=== PATIENT | male | born 1935 | race Caucasian/White ===

== ENCOUNTER 2018-11-25 08:02 | Day surgery (SDC) | payer MEDICARE ==
[~2018-11-25] VITALS: Ht 165.1 cm; Wt 71.0 kg
[~2018-11-25 08:02] MED LIST: AFLI2VIA IO; ATOR20TA65 PO; FLAX100020 PO; GLUC-145 PO; LATA2.5D2 OP; LISI10TA7 PO; PANT40TA25 PO; [UNRECOGNIZED DRUG - CODE] PO
[2018-11-25 09:38] VITALS: BP 123/60
[2018-11-25] MEDS ORDERED: PROPOFOL 10 MG/ML 20ML VIAL IV ONE (09:54)
[2018-11-25] MEDS ORDERED: ASPI-555 PO (10:12)
[2018-11-25] MEDS ORDERED: METO25TA6 PO (10:12)
[2018-11-25] MEDS ORDERED: FURO20TA4 PO (10:15)
[2018-11-25] MEDS ORDERED: SODIUM CHLORIDE 0.9% 1000ML 1,000 ML IV ONE (10:18)
[2018-11-25 10:19] VITALS: BP 94/55
[2018-11-25 10:25] VITALS: BP 97/40
--- NOTE | 2018-11-25 10:25 | NUR ---
ASSESSMENT RECEIVED PT. ASLEEP. ABD SOFT TO TOUCH. BS X4 PRESENT.
[2018-11-25 10:30] VITALS: BP 102/49
[2018-11-25 10:46] VITALS: BP 107/56
[2018-11-25 10:56] VITALS: BP 115/78
== END 2018-11-25 11:00 | disposition home or self-care (01) ==
LOC: DAH 08:02 → ENDO 08:02
PROVIDERS: ATTEND Internal Medicine
DX: K22.710 Barrett's esophagus with low grade dysplasia (principal); I10 Essential (primary) hypertension; E78.5 Hyperlipidemia, unspecified; Z85.038 Personal history of other malignant neoplasm of large intestine; Z98.890 Other specified postprocedural states; Z95.1 Presence of aortocoronary bypass graft; Z79.01 Long term (current) use of anticoagulants; Z79.899 Other long term (current) drug therapy; Z88.2 Allergy status to sulfonamides; D17.5 Benign lipomatous neoplasm of intra-abdominal organs; K31.89 Other diseases of stomach and duodenum; R00.1 Bradycardia, unspecified
CPT/HCPCS: 43237; 43239; 88305; 88312; 93005; A4606; J2704; J7030

== ENCOUNTER 2019-05-13 06:19 | Day surgery (SDC) | payer MEDICARE ==
[~2019-05-13] VITALS: Ht 170.2 cm; Wt 70.9 kg
[2019-05-13] VITALS (7 sets, daily range): BP systolic 72–118; BP diastolic 33–53
[~2019-05-13 06:19] MED LIST changes: -AFLI2VIA IO; +ASPI-555 PO; -FLAX100020 PO; +FURO20TA4 PO; -LISI10TA7 PO; +METO25TA6 PO; +SODIUM CHLORIDE 0.9% 1000ML 1,000 ML IV ONE; -[UNRECOGNIZED DRUG - CODE] PO
[2019-05-13] MEDS ORDERED: PROPOFOL 10 MG/ML 20ML VIAL IV ONE (09:17)
[2019-05-13] MEDS ORDERED: ATROPINE SULFATE 0.1 MG/ML 10 ML SYG IVP ONE (09:17)
[2019-05-13] MEDS ORDERED: EPHEDRINE SULFATE 50 MG/ML AMPULE ONE (09:18)
--- NOTE | 2019-05-13 10:03 | NUR ---
dc pt dc home via wc, accompanied by son, pt denies any pain or discomforts.
== END 2019-05-13 10:03 | disposition home or self-care (01) ==
LOC: DAH 06:19 → ENDO 06:19
PROVIDERS: ATTEND Internal Medicine
DX: K22.710 Barrett's esophagus with low grade dysplasia (principal); K44.9 Diaphragmatic hernia without obstruction or gangrene; K31.89 Other diseases of stomach and duodenum; I10 Essential (primary) hypertension; K21.9 Gastro-esophageal reflux disease without esophagitis; I25.10 Atherosclerotic heart disease of native coronary artery without angina pectoris; H40.9 Unspecified glaucoma; Z79.82 Long term (current) use of aspirin; Z79.899 Other long term (current) drug therapy; E78.5 Hyperlipidemia, unspecified; Z85.038 Personal history of other malignant neoplasm of large intestine; Z90.89 Acquired absence of other organs; Z90.49 Acquired absence of other specified parts of digestive tract; Z80.0 Family history of malignant neoplasm of digestive organs; Z88.2 Allergy status to sulfonamides; Z85.01 Personal history of malignant neoplasm of esophagus
CPT/HCPCS: 43239; 88305; A4606; J0461; J2704; J3490; J7030

== ENCOUNTER 2019-11-07 16:12 | Emergency (ER) | payer MEDICARE ==
[~2019-11-07 16:12] MED LIST changes: -SODIUM CHLORIDE 0.9% 1000ML 1,000 ML IV ONE
[2019-11-07] MEDS ORDERED: NITROGLYCERIN 1GM/1 INCH PACKET TD ONE (16:46)
[2019-11-07] MEDS ORDERED: ASPIRIN 325 MG TABLET ONE (16:46)
[2019-11-07 16:48] LABS: BASOPHILS % (AUTO) 0.7 % (0.0-5.0); EOSINOPHILS % (AUTO) 2.8 % (0.0-8.0); HEMATOCRIT 39.6 % (42-54); LYMPHOCYTES % (AUTO) 25.7 % (21.0-51.0); MEAN CORPUSCULAR HEMOGLOBIN 28.6 pg (27.0-33.0); MEAN CORPUSCULAR HGB CONC 31.8 g/dL (32.0-36.0); MONOCYTES % (AUTO) 7.1 % (3.0-13.0); NEUTROPHILS % (AUTO) 63.5 % (40.0-77.0); PLATELET COUNT (AUTO) 165 K/uL (130-400); RED CELL DISTRIBUTION WIDTH 15.4 % (11.0-15.5); WHITE BLOOD COUNT (AUTO) 5.8 K/uL (4.8-10.8)
[2019-11-07 17:02] LABS: CREATININE 1.7 mg/dL (0.5-1.5); POTASSIUM 3.9 mmol/L (3.5-5.1)
[2019-11-07 17:04] LABS: PARTIAL THROMBOPLASTIN TIME 26.5 SEC (26.3-35.5); PROTHROMBIN TIME 10.5 SEC (9.6-11.6)
[2019-11-07 17:08] LABS: ALBUMIN 3.5 g/dL (3.5-5.0); BILIRUBIN,TOTAL 0.5 mg/dL (0.2-1.0); TOTAL PROTEIN, SERUM 7.1 g/dL (6.0-8.3)
[2019-11-07 17:13] LABS: CREATINE KINASE, TOTAL 109 U/L (21-232); MYOGLOBIN 88 ng/mL (10-92); TROPONIN I < 0.04 ng/mL (0.00-0.06)
== END 2019-11-07 20:42 | disposition home or self-care (01) ==
LOC: EDH 16:12
DX: R07.89 Other chest pain (principal); F03.90 Unspecified dementia, unspecified severity, without behavioral disturbance, psychotic disturbance, mood disturbance, and anxiety; Z88.2 Allergy status to sulfonamides; K21.9 Gastro-esophageal reflux disease without esophagitis; E78.5 Hyperlipidemia, unspecified; I10 Essential (primary) hypertension; Z98.890 Other specified postprocedural states; Z87.891 Personal history of nicotine dependence; W18.39XA Other fall on same level, initial encounter; Y93.89 Activity, other specified; Y92.89 Other specified places as the place of occurrence of the external cause; Y99.8 Other external cause status
CPT/HCPCS: 36415; 80053; 82550; 83874; 84484; 85025; 85610; 85730; 93005

== ENCOUNTER → 2019-11-23 | Outpatient (CLI) | payer MEDICARE | END | disposition home or self-care (01) | LOC: RAH 10:18 | PROVIDERS: ATTEND Internal Medicine | DX: G31.9 Degenerative disease of nervous system, unspecified (principal); I67.82 Cerebral ischemia; M61.9 Calcification and ossification of muscle, unspecified | CPT/HCPCS: 70450 ==

== ENCOUNTER 2019-12-03 06:31 | Day surgery (SDC) | payer MEDICARE ==
[~2019-12-03] VITALS: Ht 167.6 cm; Wt 68.0 kg
[~2019-12-03 06:31] MED LIST changes: +SODIUM CHLORIDE 0.9% 1000ML 1,000 ML IV ONE
[2019-12-03 08:15] VITALS: BP 131/74
[2019-12-03] MEDS ORDERED: PROPOFOL 10 MG/ML 20ML VIAL IV ONE (09:14)
[2019-12-03 09:30] VITALS: BP 116/66
[2019-12-03 09:35] VITALS: BP 113/56
[2019-12-03 09:40] VITALS: BP 114/59
[2019-12-03 09:45] VITALS: BP 117/61
== END 2019-12-03 10:00 | disposition home or self-care (01) ==
LOC: DAH 06:31 → ENDO 06:31
PROVIDERS: ATTEND Internal Medicine
DX: C15.4 Malignant neoplasm of middle third of esophagus (principal); D13.2 Benign neoplasm of duodenum; I10 Essential (primary) hypertension; I25.10 Atherosclerotic heart disease of native coronary artery without angina pectoris; E78.5 Hyperlipidemia, unspecified; K31.89 Other diseases of stomach and duodenum; K21.9 Gastro-esophageal reflux disease without esophagitis; Z85.038 Personal history of other malignant neoplasm of large intestine; Z95.1 Presence of aortocoronary bypass graft; Z88.2 Allergy status to sulfonamides; Z79.82 Long term (current) use of aspirin; Z79.899 Other long term (current) drug therapy; Z90.89 Acquired absence of other organs; Z93.3 Colostomy status
CPT/HCPCS: 43239; A4215; A4221; A4222; A4223; A4606; A4620; A4663; J2704; J7030

== ENCOUNTER 2023-09-20 21:05 | Emergency (ER) | payer MEDICARE ==
[~2023-09-20] VITALS: Ht 175.3 cm; Wt 70.8 kg
[~2023-09-20 21:05] MED LIST changes: -ASPI-555 PO; +ASPI-556 PO; -FURO20TA4 PO; +LATA2.5D14 OP; -LATA2.5D2 OP; -PANT40TA25 PO; +PANT40TA54 PO; -SODIUM CHLORIDE 0.9% 1000ML 1,000 ML IV ONE
[2023-09-21 02:45] VITALS: BP 127/60; PULSE 78; RESP 14; O2SAT 97
== END 2023-09-21 02:45 ==
LOC: EDH 21:05
DX: S51.011A Laceration without foreign body of right elbow, initial encounter (principal); S00.83XA Contusion of other part of head, initial encounter; I10 Essential (primary) hypertension; F02.80 Dementia in other diseases classified elsewhere, unspecified severity, without behavioral disturbance, psychotic disturbance, mood disturbance, and anxiety; Z79.82 Long term (current) use of aspirin; Z79.899 Other long term (current) drug therapy; Z98.890 Other specified postprocedural states; W18.39XA Other fall on same level, initial encounter; Y93.89 Activity, other specified; Y92.89 Other specified places as the place of occurrence of the external cause; Y99.8 Other external cause status
CPT/HCPCS: 70450; 72125; 73070

== ENCOUNTER 2024-03-26 08:29 | Emergency (ER) | payer MEDICARE ==
[~2024-03-26] VITALS: Ht 170.2 cm; Wt 81.6 kg
[2024-03-26 09:07] LABS: BASOPHILS # (AUTO) 0.07 K/uL (0.00-0.20); BASOPHILS % (AUTO) 1.1 % (0.0-5.0); EOSINOPHILS # (AUTO) 0.63 K/uL (0.00-0.70); HEMATOCRIT 30.2 % (42-54); IMMATURE GRANULOCYTE ABSOLUTE 0.02 K/uL (0-1); LYMPHOCYTES # (AUTO) 1.6 K/uL (1.0-4.8); LYMPHOCYTES % (AUTO) 25.9 % (21.0-51.0); MEAN CORPUSCULAR HEMOGLOBIN 30.1 pg (27.0-33.0); MEAN CORPUSCULAR HGB CONC 33.4 g/dL (32.0-36.0); MEAN CORPUSCULAR VOLUME 89.9 fL (79-99); MONOCYTES # (AUTO) 0.4 K/uL (0.1-1.0); MONOCYTES % (AUTO) 6.5 % (3.0-13.0); NEUTROPHILS # (AUTO) 3.5 K/uL (1.8-7.7); NEUTROPHILS % (AUTO) 56.2 % (40.0-77.0); PLATELET COUNT (AUTO) 153 K/uL (130-400); RED BLOOD CELL COUNT(AUTO) 3.36 MIL/uL (4.50-6.20); RED CELL DISTRIBUTION WIDTH 15.9 % (11.0-15.5); WHITE BLOOD COUNT (AUTO) 6.3 K/uL (4.8-10.8)
[2024-03-26 09:22] LABS: CREATININE 1.9 mg/dL (0.5-1.3); POTASSIUM 3.6 mmol/L (3.5-5.1)
[2024-03-26 09:27] LABS: BILIRUBIN,TOTAL 0.5 mg/dL (0.2-1.0); TOTAL PROTEIN, SERUM 6.5 g/dL (6.0-8.3)
[2024-03-26 11:19] VITALS: BP 156/76; PULSE 57; RESP 17; O2SAT 100
== END 2024-03-26 12:03 | disposition home or self-care (01) ==
LOC: EDH 08:29
DX: S16.1XXA Strain of muscle, fascia and tendon at neck level, initial encounter (principal); F01.50 Vascular dementia, unspecified severity, without behavioral disturbance, psychotic disturbance, mood disturbance, and anxiety; I10 Essential (primary) hypertension; E78.5 Hyperlipidemia, unspecified; K21.9 Gastro-esophageal reflux disease without esophagitis; Z88.2 Allergy status to sulfonamides; Z79.899 Other long term (current) drug therapy; W18.30XA Fall on same level, unspecified, initial encounter; Y93.89 Activity, other specified; Y92.89 Other specified places as the place of occurrence of the external cause; Y99.8 Other external cause status
CPT/HCPCS: 36415; 70450; 72125; 80053; 85025

== ENCOUNTER 2025-02-03 09:09 | Emergency (ER) | payer MEDICARE ==
[~2025-02-03] VITALS: Ht 182.9 cm; Wt 86.2 kg
[~2025-02-03 09:09] MED LIST changes: +CYCL30DR OP; +LISI10TA24 PO; +MEMA10TA21 PO; +QUET25TA36 PO
--- NOTE | 2025-02-03 09:44 | NUR ---
1706 PT BROUGT IN BY EMS/ FROM [facility], STATED PT HAD PULLED OUT HIS PED TUBE PT HAS DEMENTIA, PT PEG WAS INSERTED BY BATTERY CONTAINER FINISHING HAND AT [facility], THEY ARE REQUESTING PLACEMENT HERE AT THE ED DEPT.
[2025-02-03] MEDS ORDERED: DIATR MEGLU/DIATRIZOATE SODIUM 30 ML BOTTLE ONE (10:17)
--- NOTE | 2025-02-03 10:22 | HMCIMG ---
ABD 1VW HISTORY: Gastrografin PEG tube evaluation COMPARISON: None FINDINGS: A frontal projection of the abdomen was obtained. Contrast was given through PEG tube with opacification of stomach. No extravasation of contrast is seen. There is dextroscoliosis. Fecal material is seen in the colon. Degenerative changes of the thoracolumbar spine are noted. IMPRESSION: 1. Findings as described above.
--- NOTE | 2025-02-03 10:48 | ERN ---
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 PER ASSISTED PATIENT WAS SENT IN DUE TO POSSIBILITY OF PEG TUBE BEING OUT. PER EMS PEG TUBE WAS REPLACED BY NURSE PRACTITIONER YESTERDAY BUT UNKNOWN IF IN THE PROPER LOCATION. 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 Allergies: Coded Allergies: Sulfa (Sulfonamide Antibiotics) (Verified Allergy, Unknown, 06/11/18) Home Meds Reported Medications Cyclosporine (Restasis) 0.05 % Droperette, 1 DROP OP BID for 30 Days, #60 EACH 0 Refills 12/06/24 Quetiapine Fumarate (Quetiapine Fumarate) 25 Mg Tablet, 25 MG PO HS, TAB 12/06/24 Latanoprost (Latanoprost) 0.005 % Drops, 1 DROP OP HS, ML 0 Refills 12/06/24 Lisinopril (Lisinopril) 10 Mg Tablet, 1 TAB PO DAILY for 30 Days, #30 TAB 0 Refills 12/06/24 Memantine HCl (Memantine HCl) 10 Mg Tablet, 10 MG PO AM, TAB 12/06/24 Aspirin (Aspir 81) 81 Mg Tablet.dr, 81 MG PO DAILY, TAB 11/25/18 Metoprolol Tartrate (Metoprolol Tartrate) 25 Mg Tablet, 25 MG PO DAILY, TAB 11/25/18 Gluc 2Kcl/Chondr/Ronan Hy/Hy AC (Glucosamine & Chondroitin Cap) 1 Each Capsule, 1 EACH PO BID, CAP 06/11/18 Latanoprost (Latanoprost) 2.5 Ml Drops, 1 DROP OP DAILY, DROP 06/11/18 Pantoprazole Sodium (Pantoprazole Sodium) 40 Mg Tablet.dr, 40 MG PO BID, TAB 06/11/18 Atorvastatin Calcium (Atorvastatin Calcium) 20 Mg Tablet, 20 MG PO DAILY, TAB 06/11/18 Past Medical History Past Medical History: Dementia, High Cholesterol, Hypertension Medical History Other: ALZHEIMERS, BLOOD CLOT LEFT EYE, Past Surgical History: Other Surgical History Other: PEG TUBE Family History Family History: Negative Social History Social History: Negative, Lives in Senior Living ROS Dictation UNABLE TO BE PERFORMED DUE TO PATIENT HAVING DEMENTIA. Physical Exam Physical Exam Dictation VITAL SIGNS: REVIEWED. GENERAL APPEARANCE: ALERT, DISORIENTED, NO ACUTE DISTRESS, OBESE. HEAD AND FACE: NON-TRAUMATIC. EYES: PERRL, PINK CONJUNCTIVAS, EYELID NO TRAUMA, ANTERIOR CHAMBER CLEAR. EARS: PINNAS INTACT AND NO SIGNS OF TRAUMA OR ERYTHEMA. EAR CANALS CLEAR AND NO DISCHARGE. TMS NO ERYTHEMA. NOSE: NO DISCHARGE, NO BLEEDING. OROPHARYNX: MOUTH NORMAL, TEETH NO CARIES, TONGUE PINK. PHARYNX CLEAR, NO ERYTHEMA. TONSILS NO EXUDATES, NO ABSCESSES NOTED. MUCOUS MEMBRANE MOIST. NECK: SUPPLE, NON-TENDER, NO THYROMEGALY, NO MASSES, NO JVD, NO BRUITS. BREAST: DEFERRED. CHEST: NO TENDERNESS, NO CREPITUS, NO PARADOXICAL MOVEMENT, NO RETRACTIONS. LUNGS: CLEAR, WELL-VENTILATED, SYMMETRIC, NO RALES, NO WHEEZING, NO RHONCHI, NO STRIDOR, GOOD BREATH SOUNDS BILATERALLY. HEART: REGULAR RATE, REGULAR RHYTHM, NO MURMUR, NO GALLOPS. VASCULAR: NO PERIPHERAL EDEMA. ABDOMEN: SOFT, POSITIVE BOWEL SOUNDS, NONDISTENDED, NO GUARDING, NONTENDER, PEG TUBE IN PLACE RECTAL: DEFERRED. GENITAL: DEFERRED. NEUROLOGICAL: NORMAL SPEECH, GROSS MOTOR FUNCTION INTACT, GROSS SENSORY FUNCTION INTACT. MUSCULOSKELETAL: NECK NONTENDER, FULL RANGE OF MOTION, BACK NONTENDER, FULL RANGE OF MOTION. EXTREMITIES: NONTENDER, FULL RANGE OF MOTION. SKIN: COLOR PINK, DRY, NO TURGOR, NO RASH, NO LACERATIONS, NO ABRASIONS, NO CONTUSIONS. LYMPHATICS: DEFERRED. Results Laboratory and Microbiology Labs Reviewed?: Yes MDM MDM: DIFFERENTIAL DIAGNOSIS: PEG TUBE MALFUNCTION, RATIONALE: TESTS CONSIDERED AND ORDERED SECONDARY TO SHARED DECISION MAKING INCLUDE: PREVIOUS OUTSIDE RECORDS REVIEWED: OLD ER VISITS. PATIENT IS A AN 89-YEAR-OLD GENTLEMAN WITH A HISTORY OF DEMENTIA SECONDARY TO ALZHEIMER'S COMING IN FOR PEG TO BE EVALUATION IMAGING STUDY WAS PERFORMED PEG TUBE IS IN THE PROPER LOCATION. PATIENT WILL BE DISCHARGED IN STABLE CONDITION WITH A DIAGNOSIS OF PEG TUBE EVALUATION. ED Course Orders Procedure Category Date Status Time Abd 1vw RAD 02/03/25 Resulted 09:33 Diatr PHA 02/03/25 Complete Meglu/Diatrizoate 10:17 Current Medications Medications (Trade) Dose Ordered Sig/Mary Route PRN Reason Start Time Stop Time Status Last Admin Dose Admin Diatrizoate Meglum/ Diatrizoate Sod (Gastrografin 66-10 Solution) 30 ml STK-MED ONCE .ROUTE 02/03/25 10:17 02/03/25 10:17 DC Vital Signs Date Time Temp Pulse Resp B/P (MAP) Pulse Ox O2 Delivery O2 Flow Rate FiO2 02/03/25 09:49 98.2 101 20 102/66 97 0 02/03/25 09:35 97.9 122 20 105/42 98 Room Air* 0 21 DX & DISP Disposition: Discharge Departure Impression: Primary Impression: Presence of externally removable percutaneous endoscopic gastrostomy (PEG) tube Condition: Stable Additional Instructions: FOLLOW-UP WITH PRIMARY CARE PROVIDER IN 1 TO 2 DAYS. TAKE MEDICATIONS DIRECTED HERE IN THE EMERGENCY ROOM. OKAY TO CONTINUE HOME MEDICATIONS UNLESS OTHERWISE DISCUSSED DURING YOUR VISIT IN THE EMERGENCY ROOM TODAY. RETURN TO YOUR NEAREST EMERGENCY ROOM IF SYMPTOMS WORSEN OR IF THERE IS NO IMPROVEMENT. CALL 911 IF YOU NEED IMMEDIATE ASSISTANCE. TAKE TYLENOL [id number] NEEDED AND IF NO CONTRAINDICATIONS ARE PRESENT. INCREASE ORAL HYDRATION. A WOUND CULTURE OR URINE CULTURE WAS ORDERED HERE IN THE EMERGENCY ROOM DEPARTMENT PLEASE FOLLOW-UP WITH PRIMARY CARE PROVIDER AND ADVISE THEM TO GET REPEAT PORTS FROM OUR FACILITY. IF YOU HAD ANY LISA WRAP/SPLINTS THAT WERE APPLIED HERE, PLEASE DO NOT REMOVE THEM UNTIL YOU SEE YOUR PRIMARY CARE OR SPECIALTY. REFERRALS: Referrals: SELF,REFERRAL (PCP) REGIS VIEYRA MD Time of Disposition: 10:48 RAISSA GARLAND MD Feb 03, 2025 10:48
[2025-02-03 11:13] VITALS: BP 92/61; PULSE 93; RESP 20; TEMP 98.2; O2SAT 96
--- NOTE | 2025-02-03 11:17 | NUR ---
PT MEDICALLY CLEARED FOR DISCHARGE PENDING EMS FOR TRANSPORT BACK TO [facility].
--- NOTE | 2025-02-03 11:21 | NUR ---
1125 CALLED [facility] GAVE REPORT SULMA NURSE TO PT STABLE NO DISTRESS, VITALS WNL, PEG TUBE INTACT PLACEMENT VERIFIED BY DR GARLAND, PED TUBE FUNCTIONING. PT HAD ONE BOWEL MOVEMENT HERE PT WAS CHANGED PRIOR TO TRANFFER BACK
--- NOTE | 2025-02-03 11:29 | NUR ---
PENDING EMS FOR DRAFTER PLUMBING
--- NOTE | 2025-02-03 11:46 | NUR ---
EMS ARRIVED FOR TRANSPORT OF PT BACK TO [facility] CONTAINER WASHER, DOCUMENTS GIVEN AND PT PLACED ON EMS STRETCHER. PT SENT BACK WITH HIS SHORTS AND PERSONAL BLANKET. NO IV ACCESS AT THIS TIME. PEG TUBE ASSESSED AT BEDSIDE WITH [facility] CONTAINER WASHER, INTACT AND IN PLACE.
== END 2025-02-03 11:30 | disposition home or self-care (01) ==
LOC: EDH 09:09
DX: Z43.1 Encounter for attention to gastrostomy (principal); E78.00 Pure hypercholesterolemia, unspecified; F02.80 Dementia in other diseases classified elsewhere, unspecified severity, without behavioral disturbance, psychotic disturbance, mood disturbance, and anxiety; I10 Essential (primary) hypertension; Z79.621 Long term (current) use of calcineurin inhibitor; Z79.82 Long term (current) use of aspirin; Z79.899 Other long term (current) drug therapy; Z88.2 Allergy status to sulfonamides
CPT/HCPCS: 99284; 74018; Q9963